=== PATIENT | female | born 1950 | race Two or more races ===

== ENCOUNTER 2017-09-12 06:25 | Day surgery (SDC) | payer OTHER ==
[~2017-09-12 06:25] MED LIST: ALLEGRA ALLERG180 MG PO; AVAPRO300 MG PO; BRAIN MIGHT-DH1 EACH PO; FORTAMET500 MG PO; GABAPENTIN800 MG PO; HYDROCHLOROTHIA25 MG PO; METFORMIN HCL500 MG PO; OSTERA TABLET1 EACH PO; PROTONIX40 MG PO; SINGULAIR10 MG PO; SYNTHROID75 MCG PO; ZANTAC150 M3 PO; ZOCOR PO; [UNRECOGNIZED DRUG - OTHER] PO
== END 2017-09-12 17:40 | disposition home or self-care (01) ==
LOC: CIR.AMB 06:25
DX: M21.73 Unequal limb length (acquired), ulna and radius (principal)

== ENCOUNTER 2025-06-21 10:30 | Outpatient (CLI) | payer OTHER | END 2025-06-21 10:35 | disposition home or self-care (01) | LOC: SONOGRAMA 10:30 | PROVIDERS: ATTEND Pathology Anatomic Pathology | DX: D34 Benign neoplasm of thyroid gland (principal); E07.89 Other specified disorders of thyroid; E04.2 Nontoxic multinodular goiter ==